=== PATIENT | male | born 1970 | race African-American/Black ===

== ENCOUNTER 2023-12-01 10:23 | Emergency (ER) | payer SELFPAY ==
[~2023-12-01] VITALS: Ht 180.3 cm; Wt 74.0 kg
[2023-12-01 10:52] VITALS: BP 158/101; PULSE 99; RESP 16; TEMP 98; O2SAT 100
[2023-12-01] MEDS ORDERED: DOXY100T28 MT (11:40)
[2023-12-01] MEDS ORDERED: IBUP-2029 MT (11:42)
[2023-12-01] MEDS ORDERED: TOPUD MT (11:42)
== END 2023-12-01 11:50 | disposition home or self-care (01) ==
LOC: ER 10:35
DX: L02.01 Cutaneous abscess of face (principal); R51.9 Headache, unspecified
CPT/HCPCS: 99283